=== PATIENT | male | born 1980 | race Caucasian/White ===

== ENCOUNTER 2016-11-04 17:57 | Emergency (ER) | payer SELFPAY ==
[~2016-11-04] VITALS: Ht 177.8 cm; Wt 77.1 kg
--- NOTE | 2016-11-04 18:01 | Emergency Room Report ---
History of Present Illness General Source: Patient, EMS (Michele Conley) Present Illness HPI Patient is a 36-year-old male brought in by EMS after increased agitation. Patient had recently been noted to be had drinking heavily. Patient states he has prior history of schizoaffective disorder. Patient states that he drank a large amount of alcohol and been off of his medications which are Risperdal. Patient reports having penicillin allergy. History markedly limited by patient' s intoxication. (Michele Conley) Allergies: Coded Allergies: PENICILLINS (Verified Allergy, Unknown, 11/04/16) Patient History Reviewed Nursing Documentation: PMH: Agreed, PSxH: Agreed (Michele Conley) Review of Systems All Other Systems: negative except mentioned in HPI (Michele Conley) Physical Exam Sp02 EP Interpretation: reviewed, normal General Appearance: normal inspection, well appearing, no apparent distress, alert Head: atraumatic ENT: normal ENT inspection, hearing grossly normal, normal voice Neck: normal inspection, full range of motion, supple, no bony tend Respiratory: normal inspection, lungs clear, normal breath sounds, no respiratory distress, no retraction, no wheezing Cardiovascular #1: regular rate, rhythm, no edema Gastrointestinal: normal inspection, normal bowel sounds, non tender, soft, no guarding, no hernia Genitourinary: no CVA tenderness Musculoskeletal: normal inspection, back normal, normal range of motion Neurologic: normal inspection, alert, responsive, speech normal, other - slurred speech Psychiatric: normal inspection, judgement/insight normal, mood/affect normal Skin: normal inspection, normal color, no rash (Michele Conley) Medical Decision Making Diagnostic Impression: Primary Impression: Alcohol intoxication Qualified Codes: F10.120 - Alcohol abuse with intoxication, uncomplicated ER Course Patient presented for agitation. Differential diagnoses include substance abuse , psychosis, bipolar disorder, depression, malingering. Because of complexity of patient's case laboratory testing and imaging studies were ordered. The patient appeared to be intoxicated with alcohol. Laboratory testing was ordered.Patient was noted to have a markedly elevated blood alcohol level. Patient was observed in the emergency department. Patient was given Risperdal for agitation. Patient appears to be intoxicated with alcohol. The patient endorsed to Dr. Boston for further sobering. Labs Test 11/04/16 18:42 White Blood Count 13.4 K/UL (4.8-10.8) Red Blood Count 4.49 M/UL (4.70-6.10) Hemoglobin 14.0 G/DL (14.2-18.0) Hematocrit 41.2 % (42.0-52.0) Mean Corpuscular Volume 92 FL (80-99) Mean Corpuscular Hemoglobin 31.2 PG (27.0-31.0) Mean Corpuscular Hemoglobin Concent 33.9 G/DL (32.0-36.0) Red Cell Distribution Width 12.6 % (11.6-14.8) Platelet Count 259 K/UL (150-450) Mean Platelet Volume 5.9 FL (6.5-10.1) Neutrophils (%) (Auto) 49.4 % (45.0-75.0) Lymphocytes (%) (Auto) 32.3 % (20.0-45.0) Monocytes (%) (Auto) 8.2 % (1.0-10.0) Eosinophils (%) (Auto) 8.7 % (0.0-3.0) Basophils (%) (Auto) 1.3 % (0.0-2.0) Sodium Level 139 mEQ/L (135-145) Potassium Level 3.6 mEQ/L (3.4-4.9) Chloride Level 97 mEQ/L (98-107) Carbon Dioxide Level 24 mEQ/L (20-30) Anion Gap 18 (5-15) Blood Urea Nitrogen 12 mg/dL (7-23) Creatinine 1.1 mg/dL (0.7-1.2) Estimat Glomerular Filtration Rate > 60 mL/min (>60) Glucose Level 110 mg/dL (74-106) Calcium Level 8.7 mg/dL (8.6-10.2) Total Bilirubin < 0.2 mg/dL (0.0-1.2) Aspartate Amino Transf (AST/SGOT) 47 U/L (5-40) Alanine Aminotransferase (ALT/SGPT) 51 U/L (3-41) Alkaline Phosphatase 83 U/L (40-129) Total Protein 6.6 g/dL (6.6-8.7) Albumin 3.8 g/dL (3.5-5.2) Globulin 2.8 g/dL Albumin/Globulin Ratio 1.3 (1.0-2.7) Salicylates Level < 1 mg/dL (10-30) Acetaminophen Level < 10 ug/mL (10-30) Serum Alcohol 257 mg/dL (Michele Conley) ER Course Patient signed out to me. He was brought in for alcohol toxic patient and agitation. He said for several hours. Denies any drug use. Not suicidal or homicidal. [facility] [place] [facility]. [facility] not want [facility] service [facility]. I will it him sleep through the night and discharge in the morning. (HUMBERTO BOSTON M.D.) Status: improved (Michele Conley) Status: improved (HUMBERTO BOSTON M.D.) Disposition: HOME, SELF-CARE Condition: Stable Additional Instructions: Stop using alcohol and drugs. Followup with your DrLucas in 7 days. Return if worse. Michele Conley Nov 04, 2016 18:01 HUMBERTO BOSTON M.D. Nov 05, 2016 01:06
[2016-11-04 18:52] LABS: BASOPHILS % (AUTO) 1.3 % (0.0-2.0); EOSINOPHILS % (AUTO) 8.7 % (0.0-3.0); LYMPHOCYTES % (AUTO) 32.3 % (20.0-45.0); MEAN CORPUSCULAR HEMOGLOBIN 31.2 PG (27.0-31.0); MEAN CORPUSCULAR HGB CONC 33.9 G/DL (32.0-36.0); MEAN CORPUSCULAR VOLUME 92 FL (80-99); MEAN PLATELET VOLUME 5.9 FL (6.5-10.1); MONOCYTES % (AUTO) 8.2 % (1.0-10.0); NEUTROPHILS % (AUTO) 49.4 % (45.0-75.0); PLATELET COUNT 259 K/UL (150-450); RED BLOOD COUNT 4.49 M/UL (4.70-6.10); RED CELL DISTRIBUTION WIDTH 12.6 % (11.6-14.8); WHITE BLOOD COUNT 13.4 K/UL (4.8-10.8)
[2016-11-04 19:08] LABS: ACETAMINOPHEN < 10 ug/mL (10-30); ALANINE AMINOTRANSFERASE 51 U/L (3-41); ALBUMIN/GLOBULIN RATIO 1.3 (1.0-2.7); ALCOHOL 257 mg/dL; ANION GAP 18 (5-15); ASPARTATE AMINO TRANSFERASE 47 U/L (5-40); CALCIUM 8.7 mg/dL (8.6-10.2); CARBON DIOXIDE 24 mEQ/L (20-30); CHLORIDE 97 mEQ/L (98-107); CREATININE 1.1 mg/dL (0.7-1.2); GLOMERULAR FILTRATION RATE > 60 mL/min (>60); HEMOLYSIS 8; POTASSIUM 3.6 mEQ/L (3.4-4.9); SODIUM 139 mEQ/L (135-145); TOTAL PROTEIN 6.6 g/dL (6.6-8.7)
[2016-11-04 20:28] VITALS: BP 115/72
[2016-11-05 02:45] VITALS: BP 109/78
[2016-11-05 06:23] VITALS: BP 109/78
== END 2016-11-05 06:30 | disposition home or self-care (01) ==
LOC: EDBD 17:57 → EMR 18:10
DX: F10.120 Alcohol abuse with intoxication, uncomplicated (principal); F25.9 Schizoaffective disorder, unspecified; Z88.0 Allergy status to penicillin
CPT/HCPCS: 36415; 80053; 85025; 99284; G0480; 80329

== ENCOUNTER 2017-04-01 12:04 | Emergency (ER) | payer SELFPAY ==
[~2017-04-01] VITALS: Ht 180.3 cm; Wt 81.6 kg
[2017-04-01] VITALS (7 sets, daily range): BP systolic 108–127; BP diastolic 66–88
[2017-04-01] MEDS ORDERED: DiphenhydrAMINE 50mg/ml Inj IM ONE (13:00)
[2017-04-01] MEDS ORDERED: Haloperidol 5mg/ml Inj IM ONE (13:00)
[2017-04-01] MEDS ORDERED: LORazepam Inj 2mg/ml 1ml IM ONE (13:00)
[2017-04-01 14:08] LABS: BASOPHILS % (AUTO) 0.9 % (0.0-2.0); EOSINOPHILS % (AUTO) 0.4 % (0.0-3.0); MEAN CORPUSCULAR HEMOGLOBIN 30.4 PG (27.0-31.0); MEAN CORPUSCULAR HGB CONC 34.2 G/DL (32.0-36.0); MEAN CORPUSCULAR VOLUME 89 FL (80-99); MEAN PLATELET VOLUME 6.2 FL (6.5-10.1); MONOCYTES % (AUTO) 9.6 % (1.0-10.0); NEUTROPHILS % (AUTO) 73.2 % (45.0-75.0); PLATELET COUNT 188 K/UL (150-450); RED BLOOD COUNT 4.55 M/UL (4.70-6.10); RED CELL DISTRIBUTION WIDTH 11.5 % (11.6-14.8); WHITE BLOOD COUNT 11.4 K/UL (4.8-10.8)
[2017-04-01 14:26] LABS: ACETAMINOPHEN < 10 ug/mL (10-30); ALANINE AMINOTRANSFERASE 95 U/L (3-41); ALBUMIN/GLOBULIN RATIO 1.8 (1.0-2.7); ALCOHOL < 10 mg/dL; ANION GAP 15 (5-15); ASPARTATE AMINO TRANSFERASE 53 U/L (5-40); CALCIUM 9.5 mg/dL (8.6-10.2); CARBON DIOXIDE 25 mEQ/L (20-30); CHLORIDE 101 mEQ/L (98-107); CREATININE 1.3 mg/dL (0.7-1.2); GLOMERULAR FILTRATION RATE > 60 mL/min (>60); HEMOLYSIS 7; POTASSIUM 3.4 mEQ/L (3.4-4.9); SODIUM 141 mEQ/L (135-145); TOTAL PROTEIN 6.8 g/dL (6.6-8.7)
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
== END 2017-04-01 17:24 | disposition home or self-care (01) ==
LOC: EDBD 12:04 → EMR 12:28
DX: S00.01XA Abrasion of scalp, initial encounter (principal); F68.8 Other specified disorders of adult personality and behavior; W25.XXXA Contact with sharp glass, initial encounter; Y93.9 Activity, unspecified; Y92.521 Bus station as the place of occurrence of the external cause; Z88.0 Allergy status to penicillin
CPT/HCPCS: 36415; 80053; 80300; 85025; 96372; 99284; G0480; J1200; J1630; 80329